=== PATIENT | female | born 1965 | race African-American/Black ===

== ENCOUNTER 2025-07-11 11:52 | Emergency (ER) | payer MEDICARE, MEDICAID ==
[~2025-07-11] VITALS: Ht 160 cm; Wt 79.0 kg
[2025-07-11 11:56] VITALS: O2SAT 100
[2025-07-11] MEDS: SODIUM CHLORIDE 0.9% 1,000 ML IV ONE ×2 (14:00→17:00)
[2025-07-11] MEDS ORDERED: AMOX1TAB16 MT (15:01)
[2025-07-11] MEDS: KETOROLAC 15MG/ML VIAL IV ONE (15:48)
[2025-07-11] MEDS: ONDANSETRON HCL 4MG/2ML INJ IV ONE (15:49)
[2025-07-11] MEDS: AMOXICILLIN/POTASSIUM CLAVULANATE 875/125MG TAB PO ONE (15:49)
[2025-07-11 15:56] LABS: BASOPHILS % 0.6 % (0.0-2.0); EOSINOPHILS % 2.6 % (0.0-5.0); HEMATOCRIT. 38.2 % (36.0-48.0); HEMOGLOBIN. 12.4 g/dL (12.0-16.0); LYMPHOCYTES % 17.8 % (20.0-50.0); MEAN PLATELET VOLUME 8.2 fl (7.4-10.4); MONOCYTES % 8.5 % (2.0-8.0); NEUTROPHILS % 70.5 % (40.0-76.0); PLATELET 494 x1000/uL (130-400); RED BLOOD CELL COUNT 4.45 mill/uL (4.2-5.4); RED CELL DISTRIBUTION WIDTH 14.4 % (11.6-14.6)
[2025-07-11 16:13] LABS: TROPONIN I HIGH SENSITIVITY 4 ng/L (3.0-34)
[2025-07-11 16:23] LABS: ASPARTATE AMINOTRANSFERASE 23 IU/L (<34); BILIRUBIN TOTAL 0.3 mg/dL (0.1-1.0); CREATININE 1.3 mg/dL (0.6-1.0); PROTEIN TOTAL 7.9 g/dL (6.0-8.3); UREA NITROGEN BLOOD 16 mg/dL (9-23)
[2025-07-11 16:28] LABS: CLARITY URINE CLOUDY (CLEAR); COLOR URINE DARK YELLOW (YELLOW); GLUCOSE URINE NEGATIVE (NEGATIVE); KETONES URINE TRACE (NEGATIVE); LEUKOCYTE ESTERASE URINE 2+ (NEGATIVE); NITRITE URINE NEGATIVE (NEGATIVE); OCCULT BLOOD URINE 3+ (NEGATIVE); PH URINE 5.5 (4.5-8.0); PROTEIN URINE 3+ (NEGATIVE); SPECIFIC GRAVITY URINE 1.024 (1.005-1.030); UROBILINOGEN URINE 1.0 E.U./dL (0.2-1.0)
[2025-07-11] MEDS ORDERED: IBUP-2030 MT (16:33)
[2025-07-11] MEDS ORDERED: CEPH500T MT (16:33)
[2025-07-11] MEDS: ACETAMINOPHEN 1000MG/100ML 100 ML IV ONE (16:46)
[2025-07-11 17:00] LABS: RBC URINE TNTC /hpf (0-2); WBC URINE TNTC /hpf (0-2)
[2025-07-11 17:01] LABS: BACTERIA URINE 3+; SQUAMOUS EPITHELIAL CELL URINE 2+ /lpf (RARE/1+)
[2025-07-11 17:14] VITALS: BP 135/84; PULSE 79; RESP 13; TEMP 36.9; O2SAT 100
[2025-07-11] MEDS: CEFTRIAXONE 1GM/50ML 50 ML IV ONE (17:15)
== END 2025-07-11 17:48 | disposition home or self-care (01) ==
LOC: ER 11:52 → CMPBEDREQ 19:40
DX: K57.32 Diverticulitis of large intestine without perforation or abscess without bleeding (principal); N39.0 Urinary tract infection, site not specified; I10 Essential (primary) hypertension; R90.82 White matter disease, unspecified; Z87.442 Personal history of urinary calculi; Z90.710 Acquired absence of both cervix and uterus; W07.XXXA Fall from chair, initial encounter; Y93.89 Activity, other specified; Y92.89 Other specified places as the place of occurrence of the external cause; Y99.8 Other external cause status; M54.50 Low back pain, unspecified
CPT/HCPCS: 99285; 70450; 96365; 96375; 96367; 96361; 80053; 81003; 83690; 85025; 86850; 86900; 86901; 87086; 84484; 36415; 74176; J1885; J0696; J2405; J7030; J0131